=== PATIENT | female | born 1980 | race Caucasian/White ===

== ENCOUNTER 2017-01-07 23:06 | Inpatient (IN) | payer OTHER ==
[2017-01-07] MEDS ORDERED: LR 500 ML IV ONE (23:22)
[2017-01-07] MEDS ORDERED: ceFAZolin 2 GM/DEXTROSE 100 ML IV ONE (23:22)
[2017-01-07] MEDS ORDERED: CITRIC ACID/SODIUM CITRATE 30 ML UDCUP PO ONE (23:22)
[2017-01-07] MEDS ORDERED: METOCLOPRAMIDE 10 MG/2 ML VIAL IVP ONE (23:23)
[2017-01-07] MEDS ORDERED: LR 1,000 ML IV SCH (23:30)
[2017-01-07] MEDS ORDERED: OXYTOCIN 10 UNIT/ML VIAL ONE (23:37)
[2017-01-07] MEDS ORDERED: MISOPROSTOL 200 MCG TAB ONE (23:37)
[2017-01-07] MEDS ORDERED: TERBUTALINE SULFATE 1 MG/ML VIAL ONE (23:37)
[2017-01-07] MEDS ORDERED: fentaNYL 100 MCG/2 ML INJ ONE (23:55)
[2017-01-07] MEDS ORDERED: morphINE PF 5 MG/10 ML INJ ONE (23:56)
[2017-01-08 00:06] LABS: % IMMATURE GRANULYOCYTES 0.7 % (0.0-1.1); ABSOLUTE IMMATURE GRANULOCYTES 0.05 10^3/uL (0.00-0.10); ADD DIFF? NO; ADD MORPH? NO; ADD SCAN? NO; ATYPICAL LYMPHOCYTE FLAG 0 (0-99); FRAGMENT RBC FLAG 0 (0-99); HEMATOCRIT 40.2 % (38.0-47.0); HEMOGLOBIN 14.1 g/dL (12.6-16.3); LEFT SHIFT FLG 0 (0-99); LIPEMIA HEMOLYSIS FLAG 90 (0-99); MEAN CELL HEMOGLOBIN 33.3 pg (27.9-34.1); MEAN CELL HEMOGLOBIN CONCENTR. 35.1 g/dL (32.4-36.7); MEAN PLATELET VOLUME 10.3 fL (8.7-11.7); PLATELET CLUMPS FLAG 0 (0-99); PLATELET COUNT 223 10^3/uL (150-400); RED BLOOD CELL COUNT 4.23 10^6/uL (4.18-5.33); RED CELL DISTRIBUTION WIDTH 12.6 % (11.5-15.2)
[2017-01-08] MEDS ORDERED: METHYLERGONOVINE MAL 0.2 MG/ML INJ ONE (00:36)
[2017-01-08] MEDS ORDERED: OXYTOCIN 100 UNITS/10 ML VIAL ONE (00:41)
[2017-01-08] MEDS ORDERED: PHENYLEPHRINE HCL 100 MCG/ML SYR ONE (00:47)
[2017-01-08 00:50] LABS: BASE EXCESS CORD -1.4 mEq/L (-13.6--3.2); PH ARTERIAL CORD BLOOD 7.32 (7.10-7.37)
[2017-01-08 01:07] LABS: PH VENOUS CORD BLOOD 7.36 (7.20-7.42)
[2017-01-08] MEDS ORDERED: fentaNYL 100 MCG/2 ML INJ IVP PRN (01:20)
[2017-01-08] MEDS ORDERED: ONDANSETRON 4 MG/2 ML VIAL IVP PRN (01:21)
[2017-01-08] MEDS ORDERED: SIMETHICONE 80 MG TAB CHEW PO PRN (01:31)
[2017-01-08] MEDS ORDERED: PROMETHAZINE HCL 25 MG/ML INJ IVP PRN (01:31)
--- NOTE | 2017-01-08 01:34 | OBPROC ---
- Delivery Pre-op Diagnoses: IUP @ 38 weeks h/o c section x 2, in active labor Post-op Diagnoses: same Procedure: Repeat Surgeon: Liliya Addison Manager Export: Raven Santana Anesthesiologist: Matthew Jain Buyer Agent/PATIENT FINANCIAL SPECIALIST: Faviola Cortez Anesthesia: Spinal Complications: None Findings: normal uterus, tubes and ovaries IV Fluid (ml): 650 EBL: 800 Cord Gases: Cord Gases Cord Blood PCO2 49.0 mmHg (37-60) 01/08/17 00:32 Cord Base Excess -1.4 mEq/L (-13.6--3.2) H 01/08/17 00:32 Cord ABG pH 7.32 (7.10-7.37) 01/08/17 00:32 Cord VBG pH 7.36 (7.20-7.42) 01/08/17 00:32 - [place] [facility] Infant A Delivery Date: 01/08/17 Delivery Time: 00:32 Sex of : Male Score (1 Min): 9 Score (5 Min): 9
--- NOTE | 2017-01-08 01:36 | OBGCSDC ---
General Delivery Information - General Info : 4 Para: 2 Abortions: 1 Delivery Physician/CNM: Liliya Addison Aircraft Cleaning Supervisor: Raven Santana Admission Date: 01/07/17 Labs: Patient ABO/Rh A POSITIVE 01/07/17 23:40 Hct 40.2 % (38.0-47.0) 01/07/17 23:40 - Delivery IUP (Weeks): 38 3/7 Number of Prior Sections: 2 Indications for Prior Section: Arrest of Descent, Elective/Repeat Indications for Current Section: Elective/Repeat Procedures: LTCS Intra-op Complications: None EBL: 800 Anesthesia: Spinal Medications: OR: Antibiotics (Ancef 2 g ), : Pitocin
[2017-01-08] MEDS ORDERED: KETOROLAC 30 MG/1 ML SDV ONE ×2 (02:34→02:39)
[2017-01-08] MEDS: KETOROLAC 30 MG/1 ML SDV IVP PRN ×4 (02:39→21:24)
[2017-01-08] MEDS: ACETAMINOPHEN 325 MG TAB PO PRN ×3 (04:59→21:30)
--- NOTE | 2017-01-08 06:18 | GOP ---
[f rep st] OPERATIVE REPORT DATE OF OPERATION: 01/08/2017 SURGEON: Liliya Addison MD [place] MACHINE OPERATOR: OTONIEL Noel, certified nurse school bus driver/teacher assistant. ANESTHESIA: Spinal anesthesia. ANESTHESIOLOGIST: Dr. Jain. PREOPERATIVE DIAGNOSIS: 1. Intrauterine at 38+ weeks gestation with a history of lower transverse sectio n x2. Desires repeat. 2. In active labor. POSTOPERATIVE DIAGNOSIS: 1. Intrauterine at 38+ weeks gestation with a history of lower transverse sectio n x2. Desires repeat. 2. In active labor. PROCEDURE PERFORMED: Repeat low transverse section. FINDINGS: A viable male. Apgars of 9 and 9. ESTIMATED BLOOD LOSS: 800 cc INDICATIONS: The patient is a 36-year-old, 4, para 2-0-1-2, with a last menstrual period of , and an EDC of 01/08/2017, which was confirmed by first trimester ultrasound. She has a history of a primary with G1 secondary to arrest of descent and a repeat with G 2 elective and also in active labor and she desires a repeat section for this baby. She wa s consented for the previously. She understood the risks and benefits. The risks includi ng bleeding, infection, damage to organs, uterus, tubes, ovaries, bowel, bladder, nerves, blood vess els, ureters, risk of injury, risk of hemorrhage requiring blood transfusion, hysterectomy, or . She understood these risks and benefits, agreed to proceed. DESCRIPTION OF PROCEDURE: Patient presented in active labor with contractions every 2 to 3 minutes, breathing through them. They have been consistent for a couple of hours. Cervical exam on admissi on was 480% -2, and patient was determined to be in active labor and we proceeded with surgery today . Patient was taken to the operating room, where she was given spinal anesthesia without difficulty. She was prepped and draped in the dorsal supine position with a leftward tilt, and a Villa catheter was placed in her bladder. After adequate anesthesia was assured, a transverse skin incision was ma de with a scalpel and the incision was carried down to the underlying layer of fascia with the Bovie . Fascia was incised in the midline. Fascial incision was extended laterally with Sage scissors. Superior aspect of the fascial incision was grasped with the Carmen clamps, elevated and the rectus muscles were dissected off sharply. Inferior aspect of the fascial incision was grasped with the Ko jim clamps, elevated, and the rectus muscles were dissected off sharply. Rectus muscles were separ ated in the midline. Peritoneum was entered sharply. Peritoneal incision was extended superiorly a nd inferiorly with good visualization of the bladder. Bladder blade was inserted. The vesicouterin e peritoneum was grasped with the pickups, entered sharply with Metzenbaum scissors. The incision w as extended laterally and bladder flap was created digitally. The uterus was incised with a knife. There was thick meconium upon entry to the uterine cavity. The incision was extended laterally wit h bandage scissors. The was delivered atraumatically and had a spontaneous cry. Upon delive ry the mouth and nose were bulb suctioned, the cord was clamped and cut. The was handed off to the waiting nurse practitioner. Cord blood gas as well as cord bloods were sent. The p lacenta was removed manually. The uterus was exteriorized, cleared of all clots and debris. The ut erine incision was repaired with 0 Vicryl in a running, locked fashion. A second imbricating layer of suture was performed with 0 Vicryl and good hemostasis was obtained. The uterus was returned to the abdomen. Gutters were cleared of all clots and debris. Reinspection of the uterine incision ag ain assured hemostasis. The rectus muscles were approximated with an inverted mattress suture 2-0 V icryl. Fascia was closed with #1 Vicryl. Subcutaneous layer was closed with 2-0 Vicryl and skin wa s closed with 4-0 Vicryl. Patient tolerated the procedure well. Sponge, lap, needle, and instrumen t counts were correct x2. Patient went to the recovery room in good condition. FLUID REPLACEMENT: 650. URINE OUTPUT: 100. /[id number]/MODL
[2017-01-08] MEDS: HYDROCODONE/APAP 5/325 TAB PO PRN (09:18)
[2017-01-08] MEDS: DOCUSATE SODIUM 100 MG CAP PO PRN (09:19)
--- NOTE | 2017-01-08 12:33 | SOAPPROG ---
SOAP Progress Note Assessment/Plan: Assessment: well pain well managed vs wnl ff@u roldan remains not passing gas yet incision remains bandaged clean dry and intact Plan: day of surgery 01/08/17 12:32 Subjective: PAin well managed. well. I am doing ok. Will get up soon. Objective: Vital Signs Temp Pulse Resp BP Pulse Ox 36.5 C 53 L 16 103/46 L 96 01/08/17 04:30 01/08/17 06:00 01/08/17 04:30 01/08/17 04:30 01/08/17 06:00 Laboratory Results 01/07/17 23:40 01/07/17 01/08/17 01/09/17 05:59 05:59 05:59 Intake Total 2428 Output Total 950 Balance 1478 - Time Spent With Patient Time Spent With Patient: 15 minutes Physical Exam - Physical Exam General Appearance: WD/WN, alert, no apparent distress Respiratory: chest non-tender, lungs clear, normal breath sounds Cardiac/Chest: regular rate, rhythm Abdomen: other (diminished bowel sounds in all 4 quadrants not passing gas as of yet) Pelvic Exam: vaginal bleeding (scant rubra lochia) Back: Normal inspection Skin: normal color, warm/dry Extremities: normal range of motion, Nanda's sign (negative bilaterally) Neuro/Psych: no motor/sensory deficits, alert, normal mood/affect, oriented x 3 ICD10 Worksheet Patient Problems: Problems Problem Status Onset repeat section Acute
--- NOTE | 2017-01-08 14:53 | SOAPPROG ---
SOAP Progress Note Assessment/Plan: Assessment: Doing well post spinal anesthesia and intrathecal morphine, without apparent complications at this time. Plan: Continue analgesia as per OB service. 01/08/17 14:52 Subjective: Patient is s/p section under spinal anesthesia. She reports no residual weakness or numbness, or headache. Patient also received intrathecal morphine for postop. pain control. She reports pain is well controlled at present, but she required analgesics sometime in the die assembler. There are no complaints of nausea/vomiting, sleepiness. Objective: Vital Signs Temp Pulse Resp BP Pulse Ox 36.5 C 53 L 16 103/46 L 96 01/08/17 04:30 01/08/17 06:00 01/08/17 04:30 01/08/17 04:30 01/08/17 06:00 Laboratory Results 01/08/17 12:48 01/07/17 01/08/17 01/09/17 05:59 05:59 05:59 Intake Total 2428 Output Total 950 Balance 1478 ICD10 Worksheet Patient Problems: Problems Problem Status Onset repeat section Acute
[2017-01-09] MEDS: DOCUSATE SODIUM 100 MG CAP PO PRN ×2 (03:28→09:38)
[2017-01-09] MEDS: IBUPROFEN 600 MG TAB PO PRN ×2 (03:28→09:37)
[2017-01-09] MEDS: ACETAMINOPHEN 325 MG TAB PO PRN (04:57)
--- NOTE | 2017-01-09 08:11 | OBPP ---
Progress Note Assessment/Plan: Assessment: s/p RCS POD # 2 - pt is stable Anemia - pt is asymptomatic Plan: Continue routine pp care Pt wants to go home today, plan for d/c later today Instructions reviewed with pt Rx given for Neoga and Motrin Cont PNV and iron Pelvic rest RTC in 2, 4 and 6 weeks for pp visit 01/09/17 08:08 Subjective: Pt seen and examined. Doing well with no complaints. Pain is well controlled. Pt is OOB, lencho reg diet, voiding and passing flatus. No BM yet. Denies any f/c/n /v/CP or SOB. BF without difficulty. Wants to go home today. Objective: 01/08/17 12:48 Patient ABO/Rh A POSITIVE 01/07/17 23:40 Temp Pulse Resp BP Pulse Ox 36.9 C 66 16 97/62 L 97 01/09/17 01:09 01/09/17 01:09 01/09/17 01:09 01/09/17 01:09 01/09/17 01:09 Uterine Position/Fundal Height: Umbilicus -2 Physical Exam - Physical Exam General Appearance: WD/WN, alert, no apparent distress Respiratory: lungs clear, normal breath sounds Cardiac/Chest: regular rate, rhythm Abdomen: normal bowel sounds, non-tender, soft, flatus (+), incision (C/D/I with steri strips), other (Pelvic: mod lochia) Extremities: non-tender, normal inspection Neuro/Psych: alert, normal mood/affect, oriented x 3
[2017-01-09 08:50] VITALS: BP 93/58; PULSE 68; RESP 20; TEMP 98.7; O2SAT 93
[2017-01-09] MEDS ORDERED: IRON POLYSAC/IRON HEME 28 MG TAB PO SCH (09:00)
[2017-01-09] MEDS: HYDROCODONE/APAP 5/325 TAB PO PRN (11:16)
== END 2017-01-09 14:30 | disposition home or self-care (01) | DRG 766 ==
LOC: OBSVTOIN 23:06 → FLD 23:06 → FOB 01-08 03:32
PROVIDERS: ADMIT Obstetrics & Gynecology; ATTEND Obstetrics & Gynecology
PROC: 10D00Z1 Extraction of Products of Conception, Low, Open Approach (ICD-10-PCS; principal; 2017-01-07)
DX: O34.219 Maternal care for unspecified type scar from previous cesarean delivery (principal); Z3A.38 38 weeks gestation of pregnancy; Z37.0 Single live birth
CPT/HCPCS: J0690; J1885; J2210; J2274; J2370; J2550; J2590; J2765; J3010; J3105